=== PATIENT | female | born 1995 | race Two or more races ===

== ENCOUNTER 2017-11-28 18:58 | Emergency (ER) | payer BC, OTHER ==
[~2017-11-28] VITALS: Ht 162.6 cm; Wt 80.9 kg
[~2017-11-28 18:58] MED LIST: HYDR1TAB12 PO
[2017-11-28 19:14] VITALS: BP 123/87
[2017-11-28] MEDS ORDERED: DIAZEPAM 5 MG TABLET ONE (19:58)
[2017-11-28] MEDS ORDERED: KETOROLAC 30 MG/1 ML ONE (19:58)
[2017-11-28] MEDS ORDERED: KETOROLAC 30 MG/1 ML IM ONE (20:00)
[2017-11-28] MEDS ORDERED: DIAZEPAM 5 MG TABLET PO ONE (20:00)
== END 2017-11-28 20:57 | disposition home or self-care (01) ==
LOC: ED 20:50
DX: S39.012A Strain of muscle, fascia and tendon of lower back, initial encounter (principal); X50.1XXA Overexertion from prolonged static or awkward postures, initial encounter; Y93.89 Activity, other specified; Y99.8 Other external cause status; Y92.69 Other specified industrial and construction area as the place of occurrence of the external cause
CPT/HCPCS: 72110; 96372; 99284; J1885